=== PATIENT | male | born 1950 | race Caucasian/White ===

== ENCOUNTER 2017-10-12 14:55 | Emergency (ER) | payer OTHER ==
[~2017-10-12] VITALS: Ht 172.7 cm; Wt 96.0 kg
[2017-10-12 15:02] VITALS: BP 148/73; PULSE 63; RESP 16; TEMP 98.7; O2SAT 98
--- NOTE | 2017-10-12 15:08 | PD ---
HPI Chief Complaint: GI Complaint Time Seen by Provider: 15:08 Travel History International Travel<30 days: No Contact w/Intl Traveler<30days: No Traveled to known affect area: No History of Present Illness HPI 67-year-old male came to the emergency room with history of constipation, abdominal discomfort and the amount of stool throughout the day. He has been on MiraLAX and stool softener [id number]. They're from [place] and were not sure what to do and hence came to the emergency room. This has been going on for past 2 weeks. Patient says that his abdominal discomfort is all over. No aggravating or relieving factors. Has been no change in his diet or anything else. No history of vomiting. No history of blood in the stool. [facility] Past Medical History Narrative Medical List of his past medical, surgical, social and family history is reviewed from the nursing note. Diabetes: Yes Social History Tobacco Use: No Allergies-Medications (Allergen,Severity, Reaction): Coded Allergies: No Known Allergies (Unverified , 10/12/17) Comments No known drug allergies Reported Meds & Prescriptions Reported Meds & Active Scripts Active Reported Atorvastatin (Atorvastatin Calcium) 20 Mg Tab 20 Mg PO HS Irbesartan 300 Mg Tab 300 Mg PO DAILY Narrative Medication List of his home medications reviewed from the nursing note. Review of Systems Except as stated in HPI: all other systems reviewed are Neg Gastrointestinal: Positive: Abdominal Pain Physical Exam Narrative GENERAL: Awake, alert, no obvious distress SKIN: Focused skin assessment warm/dry. HEAD: Atraumatic. Normocephalic. EYES: Pupils equal and round. No scleral icterus. No injection or drainage. ENT: No nasal bleeding or discharge. Mucous membranes pink and moist. NECK: Trachea midline. No JVD. CARDIOVASCULAR: Regular rate and rhythm. No murmur appreciated. RESPIRATORY: No accessory muscle use. Clear to auscultation. Breath sounds equal bilaterally. GASTROINTESTINAL: Abdomen soft, non-tender, nondistended. Hepatic and splenic margins not palpable. Rectum is empty MUSCULOSKELETAL: No obvious deformities. No clubbing. No cyanosis. No edema. NEUROLOGICAL: Awake and alert. No obvious cranial nerve deficits. Motor grossly within normal limits. Normal speech. PSYCHIATRIC: Appropriate mood and affect; insight and judgment normal. Data Data Last Documented VS Vital Signs Date Time Temp Pulse Resp B/P (MAP) Pulse Ox O2 Delivery O2 Flow Rate FiO2 3/3/18 20:02 10/12/17 15:29 59 17 99 Room Air 10/12/17 15:02 98.7 Orders Orders Complete Blood Count With Diff (10/12/17 15:22) Comprehensive Metabolic Panel (10/12/17 15:22) Lipase (10/12/17 15:22) Iv Access Insert/Monitor (10/12/17 15:22) Ecg Monitoring (10/12/17 15:22) Oximetry (10/12/17 15:22) Sodium Chloride 0.9% Flush (Ns Flush) (10/12/17 15:30) Ct Abd/Pel W/O Iv Contrast (10/12/17 ) Sodium Chlorid 0.9% 500 Ml Inj (Ns 500 M (10/12/17 16:30) Ed Discharge Order (10/12/17 19:48) Labs Laboratory Tests Test 10/12/17 15:32 White Blood Count 5.3 TH/MM3 Red Blood Count 5.12 MIL/MM3 Hemoglobin 15.1 GM/DL Hematocrit 44.3 % Mean Corpuscular Volume 86.5 FL Mean Corpuscular Hemoglobin 29.4 PG Mean Corpuscular Hemoglobin Concent 34.0 % Red Cell Distribution Width 13.6 % Platelet Count 134 TH/MM3 Mean Platelet Volume 9.2 FL Neutrophils (%) (Auto) 65.4 % Lymphocytes (%) (Auto) 23.5 % Monocytes (%) (Auto) 9.4 % Eosinophils (%) (Auto) 1.2 % Basophils (%) (Auto) 0.5 % Neutrophils # (Auto) 3.4 TH/MM3 Lymphocytes # (Auto) 1.2 TH/MM3 Monocytes # (Auto) 0.5 TH/MM3 Eosinophils # (Auto) 0.1 TH/MM3 Basophils # (Auto) 0.0 TH/MM3 CBC Comment DIFF FINAL Differential Comment Blood Urea Nitrogen 21 MG/DL Creatinine 1.21 MG/DL Random Glucose 103 MG/DL Total Protein 7.2 GM/DL Albumin 4.2 GM/DL Calcium Level 8.9 MG/DL Alkaline Phosphatase 70 U/L Aspartate Amino Transf (AST/SGOT) 17 U/L Alanine Aminotransferase (ALT/SGPT) 20 U/L Total Bilirubin 0.6 MG/DL Sodium Level 138 MEQ/L Potassium Level 4.7 MEQ/L Chloride Level 106 MEQ/L Carbon Dioxide Level 26.4 MEQ/L Anion Gap 6 MEQ/L Estimat Glomerular Filtration Rate 60 ML/MIN Lipase 162 U/L MDM Medical Decision Making Medical Screen Exam Complete: Yes Emergency Medical Condition: Yes Medical Record Reviewed: Yes Differential Diagnosis Constipation, acute diverticulitis, bowel Narrative Course 7:50 PM blood test results of back and within acceptable limits. Patient did not give a UA. CT scan is negative for any acute findings or large quantity of stool. I have discussed all these findings with the patient and his and answered all the questions to the best of my ability. I am comfortable discharging him home. Procedures EKG Prior to Arrival: No Diagnosis Primary Impression: Abdominal discomfort Referrals: Primary Care Physician Additional Instructions: Follow-up with your primary care and GI specialist soon. You may require colonoscopy at the symptoms continue. Return to the ER if the condition worsens or any other new concerns. Med/Other Pt SpecificInfo: No Change to Meds Disposition: 01 DISCHARGE HOME Condition: Stable Aidan Bright MD Oct 12, 2017 15:08
[2017-10-12] MEDS ORDERED: IRBE300T11 PO (15:10)
[2017-10-12] MEDS ORDERED: ATOR20TA15 PO (15:10)
[2017-10-12 15:29] VITALS: BP 143/67; PULSE 59; RESP 17; O2SAT 99
[2017-10-12] MEDS ORDERED: SODIUM CHLORIDE 0.9% FLUSH 10 ML FLUSH IV FLUSH PRN (15:30)
[2017-10-12 15:38] LABS: AUTOMATED NEUTROPHIL # 3.4 TH/MM3 (1.8-7.7); BASOPHIL % 0.5 % (0.0-2.0); EOSINOPHIL # 0.1 TH/MM3 (0-0.4); EOSINOPHIL % 1.2 % (0.0-4.0); HEMATOCRIT 44.3 % (39.0-51.0); HEMOGLOBIN 15.1 GM/DL (13.0-17.0); LYMPH % 23.5 % (9.0-44.0); LYMPHOCYTE # 1.2 TH/MM3 (1.0-4.8); MEAN CELL VOLUME 86.5 FL (80.0-100.0); MEAN CORPUSCULAR HEMOGLOBIN 29.4 PG (27.0-34.0); MEAN PLATELET VOLUME 9.2 FL (7.0-11.0); MONO % 9.4 % (0.0-8.0); MONOCYTE # 0.5 TH/MM3 (0-0.9); NEUT % 65.4 % (16.0-70.0); PLATELET COUNT 134 TH/MM3 (150-450); RED BLOOD COUNT 5.12 MIL/MM3 (4.50-5.90); RED CELL DISTRIBUTION WIDTH 13.6 % (11.6-17.2); WHITE BLOOD COUNT 5.3 TH/MM3 (4.0-11.0)
[2017-10-12 15:52] LABS: ALBUMIN 4.2 GM/DL (3.4-5.0); AST (GOT) 17 U/L (15-37); BLOOD UREA NITROGEN 21 MG/DL (7-18); CALCIUM 8.9 MG/DL (8.5-10.1); CREATININE 1.21 MG/DL (0.60-1.30); GLOMERULAR FILTRATION RATE 60 ML/MIN (>89); GLUCOSE,RANDOM 103 MG/DL (74-106)
[2017-10-12 15:53] LABS: ALT (GPT) 20 U/L (12-78); BICARBONATE 26.4 MEQ/L (21.0-32.0); CHLORIDE 106 MEQ/L (98-107); SODIUM (NA) 138 MEQ/L (136-145)
[2017-10-12 15:54] LABS: ALKALINE PHOSPHATASE 70 U/L (45-117); TOTAL BILIRUBIN ADULT 0.6 MG/DL (0.2-1.0); TOTAL PROTEIN 7.2 GM/DL (6.4-8.2)
[2017-10-12] MEDS ORDERED: SODIUM CHLORID 0.9% 500 ML INJ 500 ML IV ONE (16:30)
--- NOTE | 2017-10-12 17:51 | RADRPT ---
EXAM DATE/TIME: 10/12/2017 17:38 [place] COMPARISON: No previous studies available for comparison. INDICATIONS : Constipation for nine days. ORAL CONTRAST: No oral contrast ingested. RADIATION DOSE: 17.38 CTDIvol (mGy) MEDICAL HISTORY : Hypertension. Diabetes mellitus type 1. SURGICAL HISTORY : Turp ENCOUNTER: Initial ACUITY: 2 weeks PAIN SCALE: 6/10 LOCATION: abdomen TECHNIQUE: Volumetric scanning of the abdomen and pelvis was performed. Using automated exposure control and ad justment of the mA and/or kV according to patient size, radiation dose was kept as low as reasonably achievable to obtain optimal diagnostic quality images. DICOM format image data is available electro nically for review and comparison. FINDINGS: There are scattered cysts within the liver the largest in the left lobe measuring 3.8 cm on image 15. Spleen, pancreas, kidneys, adrenals, stomach unremarkable. Fat-containing umbilical hernia is identi fied measuring 1.8 cm in transverse dimension, 4.6 cm in AP dimension. The urinary bladder are unrema rkable. The patient has had previous TURP procedure to the prostate. No evidence of bowel obstruction . The appendix is unremarkable. No adenopathy or aneurysm. Degenerative changes of the lumbar spine g reatest at L5-S1. Lung bases are clear. CONCLUSION: 1. Hepatic cysts. 2. Umbilical hernia. 3. No evidence of bowel obstruction or significant stool burden. Seven Valention MD on October 12, 2017 at 17:47 Board Certified Radiologist. This report was verified electronically.
== END 2017-10-12 20:15 | disposition home or self-care (01) ==
LOC: NEPE 14:55
DX: R10.9 Unspecified abdominal pain (principal); K76.89 Other specified diseases of liver; K42.9 Umbilical hernia without obstruction or gangrene; E11.9 Type 2 diabetes mellitus without complications; Z79.899 Other long term (current) drug therapy
CPT/HCPCS: 74176; 80053; 83690; 85025; 96360; 99284; J7040